=== PATIENT | male | born 1955 | race Caucasian/White ===

== ENCOUNTER → 2018-08-03 | Outpatient (CLI) | payer BC ==
[2018-08-03 16:30] LABS: HCT 41.7 % (39.0-53.0); HGB 13.9 gm/dL (13.0-17.5); MCH 29.6 pg (25.0-35.0); MCHC 33.4 g/dL (31.0-37.0); MCV 88.9 fL (80.0-100.0); Mean Platelet Volume 6.7; Platelet Count 290 k/uL (150-450); RBC 4.69 m/uL (4.30-5.90); RDW 12.4 % (11.5-15.5); WBC 8.8 k/uL (3.8-10.6)
== END | disposition home or self-care (01) ==
LOC: LABPAT 15:30
PROVIDERS: ATTEND Surgery
DX: Z01.818 Encounter for other preprocedural examination (principal); Z01.812 Encounter for preprocedural laboratory examination; K42.9 Umbilical hernia without obstruction or gangrene
CPT/HCPCS: 36415; 85027; 93005

== ENCOUNTER 2018-08-08 11:39 | Day surgery (SDC) | payer BC ==
[2018-08-02 14:16] VITALS: BMI 27.7
[~2018-08-08 11:39] MED LIST: DEXAMETHASONE SOD PHOSPHATE 10 MG/ML 1 ML VIAL IV ONE; HEPARIN SODIUM,PORCINE 5,000 UNIT/ML 1 ML VIAL SQ ONE; LIDOCAINE 1% 20 ML VIAL (10MG/ML) FOR IV START INTRADERMA PRN; ONDANSETRON 4 MG/2 ML VIAL IVP ONE; SCOPOLAMINE 1.5MG/72HR PATCH TRANSDERM ONE; ceFAZolin IN SWFI 2 GM/20 ML SYRINGE IVP ONE
[2018-08-08] MEDS: LACTATED RINGERS 1,000 ML IV SCH ×3 (12:47→15:35)
[2018-08-08] MEDS ORDERED: BUPIVACAIN-EPI 0.25%-1:200,000 30 ML VIAL SQ ONE ×2 (12:49→13:33)
[2018-08-08] MEDS: MIDAZOLAM 2 MG/2 ML VIAL IVP ONE ×2 (12:50→12:52)
[2018-08-08] MEDS ORDERED: fentaNYL (PF) 50 MCG/ML 2 ML AMP IVP ONE (12:52)
[2018-08-08] MEDS ORDERED: LABETALOL SYRINGE 5 MG/ML IVP ONE (12:57)
[2018-08-08 13:00] LABS: ALT 32 U/L (21-72); AST 22 U/L (17-59); Albumin 4.2 g/dL (3.5-5.0); Alkaline Phosphatase 95 U/L (38-126); Anion Gap 10 mmol/L; Blood Urea Nitrogen 13 mg/dL (9-20); Calcium 9.5 mg/dL (8.4-10.2); Carbon Dioxide 26 mmol/L (22-30); Chloride 106 mmol/L (98-107); Glucose 94 mg/dL (74-99); Potassium 4.3 mmol/L (3.5-5.1); Sodium 142 mmol/L (137-145); Total Bilirubin 0.7 mg/dL (0.2-1.3); Total Protein 7.1 g/dL (6.3-8.2)
--- NOTE | 2018-08-08 13:05 | P.GSHP ---
History of Present Illness H&P Date: 08/08/18 Chief Complaint: Umbilical hernia This is a 62-year-old male who presents today for laparoscopic robotic system repair of umbilical hernia. He developed a 3 cm umbilical hernia. Past Medical History Past Medical History: Coronary Artery Disease (CAD), Hearing Disorder / Deafness , Hyperlipidemia, Hypertension, Myocardial Infarction (HI), Osteoarthritis (OA) Additional Past Medical History / Comment(s): BILAT HEARING AIDS Last Myocardial Infarction Date:: 12/2008 History of Any Multi-Drug Resistant Organisms: None Reported Past Surgical History: Heart Catheterization With Stent, Joint Replacement Additional Past Surgical History / Comment(s): LT TKA 08/2017, COLONOSCOPY Past Anesthesia/Blood Transfusion Reactions: Motion Sickness Date of Last Stent Placement:: 12/2008 Smoking Status: Never smoker - Past Family History Brother(s) Family Medical History: Cancer Medications and Allergies Home Medications Medication Instructions Recorded Confirmed Type Atorvastatin [Lipitor] 40 mg PO HS 09/04/15 08/08/18 History Clopidogrel [Plavix] 75 mg PO DAILY 09/04/15 08/08/18 History Enalapril Maleate [Vasotec] 2.5 mg PO HS 09/04/15 08/08/18 History Metoprolol Succinate (ER) [Toprol 50 mg PO HS 09/04/15 08/08/18 History Xl] Allergies Allergy/AdvReac Type Severity Reaction Status Date / Time No Known Allergies Allergy Verified 08/02/18 14:11 Surgical - Exam Vital Signs Temp Pulse Resp BP Pulse Ox 98.1 F 106 H 18 163/99 95 08/08/18 12:40 08/08/18 12:40 08/08/18 12:40 08/08/18 12:40 08/08/18 12:40 - General well developed, no distress - Eyes PERRL - ENT normal pinna - Neck no masses - Respiratory normal expansion - Cardiovascular Rhythm: regular - Abdomen Abdomen: soft, non tender Results - Labs 08/08/18 12:38 Diabetes panel 08/08/18 Range/Units 12:38 Sodium 142 (137-145) mmol/L Potassium 4.3 (3.5-5.1) mmol/L Chloride 106 (98-107) mmol/L Carbon Dioxide 26 (22-30) mmol/L BUN 13 (9-20) mg/dL Creatinine 0.92 (0.66-1.25) mg/dL Glucose 94 (74-99) mg/dL Calcium 9.5 (8.4-10.2) mg/dL AST 22 (17-59) U/L ALT 32 (21-72) U/L Alkaline Phosphatase 95 (38-126) U/L Total Protein 7.1 (6.3-8.2) g/dL Albumin 4.2 (3.5-5.0) g/dL Calcium panel 08/08/18 Range/Units 12:38 Calcium 9.5 (8.4-10.2) mg/dL Albumin 4.2 (3.5-5.0) g/dL Pituitary panel 08/08/18 Range/Units 12:38 Sodium 142 (137-145) mmol/L Potassium 4.3 (3.5-5.1) mmol/L Chloride 106 (98-107) mmol/L Carbon Dioxide 26 (22-30) mmol/L BUN 13 (9-20) mg/dL Creatinine 0.92 (0.66-1.25) mg/dL Glucose 94 (74-99) mg/dL Calcium 9.5 (8.4-10.2) mg/dL Adrenal panel 08/08/18 Range/Units 12:38 Sodium 142 (137-145) mmol/L Potassium 4.3 (3.5-5.1) mmol/L Chloride 106 (98-107) mmol/L Carbon Dioxide 26 (22-30) mmol/L BUN 13 (9-20) mg/dL Creatinine 0.92 (0.66-1.25) mg/dL Glucose 94 (74-99) mg/dL Calcium 9.5 (8.4-10.2) mg/dL Total Bilirubin 0.7 (0.2-1.3) mg/dL AST 22 (17-59) U/L ALT 32 (21-72) U/L Alkaline Phosphatase 95 (38-126) U/L Total Protein 7.1 (6.3-8.2) g/dL Albumin 4.2 (3.5-5.0) g/dL Assessment and Plan Assessment: Umbilical hernia. We'll perform laparoscopic robotic-assisted repair.
[2018-08-08] MEDS ORDERED: LABETALOL 5 MG/ML VIAL MDV ONE (13:10)
[2018-08-08] MEDS ORDERED: LIDOCAINE 1% INJ 10MG/ML (20 ML MDV) ONE (13:10)
[2018-08-08] MEDS ORDERED: KETOROLAC 30 MG/ML 1 ML VIAL ONE (13:10)
[2018-08-08] MEDS ORDERED: NEOSTIGMINE 1 MG/ML 10 ML VIAL ONE (13:10)
[2018-08-08] MEDS ORDERED: PROPOFOL 10 MG/ML 20 ML VIAL IV ONE (13:10)
[2018-08-08] MEDS ORDERED: MIDAZOLAM 2 MG/2 ML VIAL ONE (13:10)
[2018-08-08] MEDS ORDERED: fentaNYL (PF) 50 MCG/ML 2 ML AMP ONE (13:10)
[2018-08-08] MEDS ORDERED: ROPIVACAINE 5 MG/ML 30 ML VIAL ONE (13:10)
[2018-08-08] MEDS ORDERED: ROCURONIUM BROMIDE 10 MG/ML 10 ML VIAL IV ONE (13:10)
[2018-08-08] MEDS ORDERED: GLYCOPYRROLATE 0.2 MG/ML 2 ML VIAL ONE (13:10)
[2018-08-08] MEDS ORDERED: SUCCINYLCHOLINE CHLORIDE 100 MG/5 ML SYR IV ONE (13:10)
--- NOTE | 2018-08-08 13:30 | P.ONQ ---
Anesthesiology Proc Note - PNB - Peripheral Nerve Block Performed Bilateral Rectus Abdominis Single Procedure Start Time: 12:50 Procedure Stop Time: 13:00 Indication: Requested by physician Specifically requested for management of pain by DrMika: Lj Hutchinson Sedation Type: Sedate with meaningful contact maintained Preparation: Sterile Prep Position: Supine Needle Types: Other (see comment) (pujunk) Needle Size: 100mm (4") Needle Gauge: 21 Technique: Ultrasound (ropivacaine 0.5 % 20 ml Plus lidocaine 2 % with epi 1/ 200 20 ml ) Adjunct: Epinephrine (see comment for dilution ratio) Blood Aspirated: No Pain Paresthesia on Injection Noted: No Resistance on Injection: Normal Events: Uneventful and Well Tolerated
[2018-08-08 14:23] VITALS: TEMP 97.2
--- NOTE | 2018-08-08 14:32 | P.OP ---
Date of Procedure: 08/08/18 Preoperative Diagnosis: Incarcerated umbilical hernia Postoperative Diagnosis: Incarcerated umbilical hernia Procedure(s) Performed: Laparoscopic robotic-assisted repair of incarcerated umbilical hernia Partial omentectomy Anesthesia: ERICA Surgeon: Lj Hutchinson Estimated Blood Loss (ml): 5 Pathology: other (Omentum) Condition: stable Disposition: PACU Description of Procedure: The patient was placed on the operating table in the supine position. He received general anesthesia. His abdomen was prepped and draped usual fashion. Using a 5 mm optical trocar under direct visualization the peritoneal cavity was entered in the left upper quadrant. The abdomen was then insufflated. The laparoscope was placed back into the perineal cavity. Next a 8 mm robotic trocar was placed in the left lower quadrant and a 12 mm robotic trocar was placed in the left lateral position. The original 5 mm trocar was exchanged for a 8 mm robotic trocar. The patient's placed in the left side up position. And the patient was undocked the robot. The umbilical hernia was visualized. There was incarcerated omentum the hernia. This was dissected free using the cautery. A portion of the omentum was transected with the hook cautery. Using hook cautery the peritoneum over the umbilical hernia was excised. The fascial opening was repaired using 0V LOC suture. Next a piece of 11 cm round ventral light ST mesh was placed into the. Cavity and secured with 2 OV lock suture. The patient was undocked the robot. The needles were retrieved. The omentum was retrieved. The fascia of the 12 mm trocar site was closed with 0 Ethibond suture. Skin was closed interrupted 3-0 Monocryl suture. Dermabond dressings was applied. Patient top procedure well and was sent to recovery room stable condition.
[2018-08-08] MEDS: HYDROmorphone 0.5 MG/0.5 ML SYRINGE IVP PRN ×2 (15:11→15:21)
[2018-08-08 15:19] VITALS: RESP 16
[2018-08-08] MEDS ORDERED: HYDROcodone/APAP 7.5-325MG 1 EACH TAB PO ONE (16:20)
[2018-08-08 17:02] VITALS: BP 126/81; PULSE 89
== END 2018-08-08 18:27 | disposition home or self-care (01) ==
LOC: OR 11:39
PROVIDERS: ATTEND Surgery
DX: K42.0 Umbilical hernia with obstruction, without gangrene (principal); E78.5 Hyperlipidemia, unspecified; I10 Essential (primary) hypertension; I25.10 Atherosclerotic heart disease of native coronary artery without angina pectoris; I25.2 Old myocardial infarction; M19.90 Unspecified osteoarthritis, unspecified site; Z79.899 Other long term (current) drug therapy; Z95.5 Presence of coronary angioplasty implant and graft; Z96.652 Presence of left artificial knee joint; Z79.02 Long term (current) use of antithrombotics/antiplatelets
CPT/HCPCS: 49653; 64488; 80053; 88302; C1781; J2250; J1644; J1100; J2710; J2001; J3010; J1885; J2795; J0330; J2704; J1170; J0690